=== PATIENT | male | born 1975 | race Caucasian/White ===

== ENCOUNTER 2022-03-04 11:48 | Emergency (ER) | payer OTHER, SELFPAY ==
[2022-03-04] VITALS (10 sets, daily range): BP systolic 138–195; BP diastolic 84–116; PULSE 79–108; RESP 16; TEMP 36.8; O2SAT 94–97
--- NOTE | 2022-03-04 12:29 | ED_ITS ---
HPI - General Adult General Time Seen by Provider: 12:31 Date Seen: 03/04/22 Chief complaint: Dizziness/Vertigo Stated complaint: Lightheaded, tingling left arm Time Seen by Provider: 03/04/22 12:18 Source: patient and family Mode of arrival: ambulatory Limitations: no limitations History of Present Illness HPI narrative: 46-year-old male who comes in today with intermittent lightheadedness for the last 3-4 days, along with some pressure in the back of the head. He notes lightheaded some more when he stands although it is been a little more consistent today. He denies associated chest pain, palpitations, nausea, vomiting. Has had some loose stools but no abdominal pain. Denies fevers or chills. No shortness of breath with this. Has not taken anything for his symptoms. He takes lisinopril daily for hypertension, no other medications. Denies smoking. Also some numbness in the left arm which he associates with carpal tunnel syndrome and which felt better after he took aspirin earlier. Related Data Home Medications Medication Instructions Recorded Confirmed lisinopril 20 mg tablet 20 mg PO DAILY 03/04/22 03/04/22 Allergies Allergy/AdvReac Type Severity Reaction Status Date / Time No Known Drug Allergies Allergy Verified 03/04/22 12:09 Review of Systems Status of ROS: Reports: 10 or more systems reviewed and unremarkable except as noted in History and below PFSH PFS Social History Smoking Status: Never smoker Do you use any of these nicotine containing products: None Second hand tobacco smoke exposure: No How often do you have a drink containing alcohol: 4 or more times a week How many standard drinks containing alcohol do you have on a typical day: 3 or 4 AUDIT-C Alcohol total score: 5 Non-prescribed substance use: denies use service: Yes Exam Narrative: Exam Narrative: General: Well-developed and well-nourished, no acute distress Head: Atraumatic and normocephalic Eyes: Pupils are equal reactive, extraocular motions intact, conjunctiva clear ENT: External nose and ears are normal, posterior pharynx without erythema or exudate Neck: No midline cervical tenderness, full spontaneous range of motion the neck, trachea midline, no adenopathy Heart: Tachycardic but regular with no murmurs Lungs: Clear to auscultation bilaterally without wheezes or crackles Abdomen: Soft, nontender, nondistended with active bowel sounds Musculoskeletal: No tenderness, deformity, or edema Neurologic: Awake, alert, and oriented x3, no gross focal neurologic deficits, cranial nerves intact as tested Psych: Mood and affect are appropriate Skin: No rashes Const: Vital Signs, click to edit/add: Vital Signs - 24 hr 03/04/22 12:10 03/04/22 12:30 03/04/22 13:18 Temperature 98.2 F Pulse Rate 90 Pulse Rate [Pulse Oximeter] 108 H 98 Respiratory Rate 16 Blood Pressure 152/88 H Blood Pressure [Ri ght Upper Arm] 195/116 H 159/89 H Pulse Oximetry 96 95 96 Oxygen Delivery Me thod Room Air Room Air 03/04/22 13:19 03/04/22 12:45 03/04/22 13:30 Temperature Pulse Rate 88 84 Pulse Rate [Pulse Oximeter] 90 Respiratory Rate Blood Pressure Blood Pressure [Ri ght Upper Arm] 139/84 Pulse Oximetry 96 94 94 Oxygen Delivery Me thod Room Air 03/04/22 13:31 Temperature Pulse Rate 79 Pulse Rate [Pulse Oximeter] Respiratory Rate Blood Pressure 138/86 Blood Pressure [Ri ght Upper Arm] Pulse Oximetry 95 Oxygen Delivery Me thod Course Course Hospital Course: Patient seen examined, prior records are reviewed. Differential diagnosis includes but not limited to dysrhythmia, acute coronary syndrome, pulmonary embolism, electrolyte disturbance, medication side effect, anemia, dehydration. Patient with intermittent lightheadedness for the last 3-4 days. No associated chest pain, palpitations, or shortness of breath. On initial exam, patient is tachycardic and hypertensive but no other acute findings. Lab, EKG, chest x-ray ordered. Reevaluation(s) Reevaluation #1: EKG is reassuring. Heart rate and blood pressure improving without intervention. Troponin is negative, CBC is normal, basic panel and D-dimer are pending. Chest x-ray negative for any acute intrathoracic pathology. Time: 13:28 Reevaluation #2: Basic panel is reassuring including normal glucose and normal electrolytes. D- dimer is negative. Patient is movement discharge. Follow-up with primary care, symptoms persist consider Holter monitor or further provocative testing but in absence of chest pain or anginal equivalent, unlikely this symptoms today represent acute coronary syndrome. Time: 13:40 Vital Signs Vital signs: Initial Vital Signs Temperature 98.2 F 03/04/22 12:10 Temperature Source Temporal Artery Scan 03/04/22 12:10 Pulse Rate 108 H 03/04/22 12:10 Pulse Rhythm 03/04/22 12:10 Pulse Strength 3+ Normal 03/04/22 12:10 Respiratory Rate 16 03/04/22 12:10 Blood Pressure 195/116 H 03/04/22 12:10 Blood Pressure Mean 142 03/04/22 12:10 Blood Pressure Position Sitting 03/04/22 12:10 Pulse Oximetry 96 03/04/22 12:10 Oxygen Delivery Method 03/04/22 12:10 Vital Signs Temperature 98.2 F 03/04/22 12:10 Pulse Rate 108 H 03/04/22 12:10 Respiratory Rate 16 03/04/22 12:10 Blood Pressure 195/116 H 03/04/22 12:10 Pulse Oximetry 96 03/04/22 12:10 Oxygen Delivery Method 03/04/22 12:10 Temperature 98.2 F 03/04/22 12:10 Pulse Rate 79 03/04/22 13:31 Respiratory Rate 16 03/04/22 12:10 Blood Pressure 138/86 03/04/22 13:31 Pulse Oximetry 95 03/04/22 13:31 Oxygen Delivery Method 03/04/22 12:45 Medical Decision Making Medical Records Medical records reviewed: Yes I reviewed the patient's medical records Lab Data Lab results reviewed: Yes I reviewed the patient's lab results Labs: Lab Results 03/04/22 03/04/22 03/04/22 Range/Units 12:33 13:05 13:05 WBC 6.17 (4.50-11.00) K/uL RBC 5.35 (4.30-5.90) m/uL Hgb 16.7 (13.5-17.5) gm/dL Hct 46.7 (37.0-53.0) % MCV 87 (80-100) fL MCH 31 (26-34) pg MCHC 36 (32-36) gm/dL RDW Coeff of Leopoldo 12.3 (11.5-15.5) % Plt Count 154 (140-440) K/uL Neut % (Auto) 66.8 (42.0-72.0) % Lymph % (Auto) 23.7 (20-44) % [place] % (Auto) 7.5 (0.0-11.0) % Eos % (Auto) 1.0 (0.0-7.0) % Baso % (Auto) 0.5 (0.0-3.0) % Neut # (Auto) 4.13 (1.7-7.0) K/uL Lymph # (Auto) 1.46 (0.90-2.90) K/uL [place] # (Auto) 0.50 (0.00-0.90) K/UL Eos # (Auto) 0.06 (0.00-0.50) K/uL Baso # (Auto) 0.03 (0.00-0.30) K/uL Abs Immat Gran (auto) 0.03 (0.00-0.30) K/uL D-Dimer Quant (PE/DVT) < 0.27 (0.00-0.50) ug/ml Sodium (135-149) mmol/L Potassium (3.6-5.1) mmol/L Chloride (96-114) mmol/L Carbon Dioxide (20-32) mmol/L BUN (5-24) mg/dL Creatinine (0.5-1.5) mg/dL Estimated Creat Clear Estimated GFR ml/min Glucose (60-115) mg/dL Calcium (8.4-10.6) mg/dL POC Troponin I 0.01 (0.01-0.04) ng/ml 03/04/22 Range/Units 13:05 WBC (4.50-11.00) K/uL RBC (4.30-5.90) m/uL Hgb (13.5-17.5) gm/dL Hct (37.0-53.0) % MCV (80-100) fL MCH (26-34) pg MCHC (32-36) gm/dL RDW Coeff of Leopoldo (11.5-15.5) % Plt Count (140-440) K/uL Neut % (Auto) (42.0-72.0) % Lymph % (Auto) (20-44) % [place] % (Auto) (0.0-11.0) % Eos % (Auto) (0.0-7.0) % Baso % (Auto) (0.0-3.0) % Neut # (Auto) (1.7-7.0) K/uL Lymph # (Auto) (0.90-2.90) K/uL [place] # (Auto) (0.00-0.90) K/UL Eos # (Auto) (0.00-0.50) K/uL Baso # (Auto) (0.00-0.30) K/uL Abs Immat Gran (auto) (0.00-0.30) K/uL D-Dimer Quant (PE/DVT) (0.00-0.50) ug/ml Sodium 137 (135-149) mmol/L Potassium 3.8 (3.6-5.1) mmol/L Chloride 101 (96-114) mmol/L Carbon Dioxide 25 (20-32) mmol/L BUN 16 (5-24) mg/dL Creatinine 1.1 (0.5-1.5) mg/dL Estimated Creat Clear 88.42 Estimated GFR 83 ml/min Glucose 135 H (60-115) mg/dL Calcium 9.6 (8.4-10.6) mg/dL POC Troponin I (0.01-0.04) ng/ml Imaging Data Chest x-ray: Attestation: I have reviewed the pertinent imaging results. My impression: Negative chest Radiologist's impression: Unremarkable chest ECG Data Attestation: I personally reviewed and interpreted this ECG as follows: Prior ECG tracings: not available for review Interpretation: Performed at 1:14 p.m. demonstrates normal sinus rhythm rate 85, no acute ST elevations or depressions, normal intervals, left axis deviation, QTC 421. No prior for comparison. Discharge Plan Discharge Clinical Impression: Near syncope, Hypertension Patient Disposition: Home, Self-Care Condition: Stable Instructions: Chronic Hypertension (DC), Near Syncope (ED) Additional Instructions: Continue your current medications. Follow-up with your primary care doctor in 3-4 days. Activity Level: No Restrictions Discharge Diet: Regular Prescriptions: No Action lisinopril 20 mg tablet 20 mg PO DAILY Stand Alone Forms: [employer] Info Instructions
--- NOTE | 2022-03-04 12:32 | CRLHL7_ITS ---
For Patients: As a result of the Century Cures Act, medical imaging exams and procedure reports are released immediately into your electronic medical record. You may view this report before your referring provider. If you have questions, please contact your health care provider. INDICATION: lightheadedness TECHNIQUE: Chest 2 views. COMPARISON: None. FINDINGS: Cardiovascular and mediastinum: Heart size and vasculature are normal in caliber and appearance. Mediastinum is within normal limits. Lungs and pleural spaces: Lungs are clear. No sign of infiltrate or mass. No sign of pleural effusion. No pneumothorax. Bones and soft tissues: No significant findings. IMPRESSION: Unremarkable chest. Dictated by: Ammon Eason MD @ 03/04/2022 13:01:41 (Electronically Signed)
[2022-03-04 13:16] LABS: Basophils Absolute Auto 0.03 K/uL (0.00-0.30); Basophils Percent Auto 0.5 % (0.0-3.0); Eosinophils Absolute Auto 0.06 K/uL (0.00-0.50); Hematocrit 46.7 % (37.0-53.0); Hemoglobin* 16.7 gm/dL (13.5-17.5); Immature Granulocytes Abs Auto 0.03 K/uL (0.00-0.30); Lymphocytes Absolute Auto 1.46 K/uL (0.90-2.90); Lymphocytes Percent Auto 23.7 % (20-44); Mean Corpuscular HGB Conc 36 gm/dL (32-36); Mean Corpuscular Hemoglobin 31 pg (26-34); Mean Corpuscular Volume 87 fL (80-100); Monocytes Percent Auto 7.5 % (0.0-11.0); Neutrophils Absolute Auto 4.13 K/uL (1.7-7.0); Neutrophils Percent Auto 66.8 % (42.0-72.0); Platelet Count* 154 K/uL (140-440); RDW Coefficient of Variation % 12.3 % (11.5-15.5); Red Blood Count 5.35 m/uL (4.30-5.90); White Blood Count* 6.17 K/uL (4.50-11.00)
[2022-03-04 13:17] LABS: Slide Review Reflex No
[2022-03-04] MEDS: 0.9 % SODIUM CHLORIDE 1000 ml 1,000 ML IV (13:18)
[2022-03-04 13:24] LABS: Troponin, Point-of-Care* 0.01 ng/ml (0.01-0.04)
[2022-03-04 13:27] LABS: Chloride* 101 mmol/L (96-114); Sodium* 137 mmol/L (135-149)
[2022-03-04 13:28] LABS: Potassium* 3.8 mmol/L (3.6-5.1)
[2022-03-04 13:30] LABS: Carbon Dioxide* 25 mmol/L (20-32); Creatinine* 1.1 mg/dL (0.5-1.5); Est. Creatinine Clearance* 88.42; Estimated Glomerular Filt Rate 83 ml/min
[2022-03-04 13:31] LABS: Blood Urea Nitrogen* 16 mg/dL (5-24); Calcium* 9.6 mg/dL (8.4-10.6); Glucose* 135 mg/dL (60-115)
[2022-03-04 13:33] LABS: D Dimer Quantitative* < 0.27 ug/ml (0.00-0.50)
== END 2022-03-04 14:15 | disposition home or self-care (01) ==
PROVIDERS: Emergency Provider Family Medicine
DX: R55 Syncope and collapse (principal); I10 Essential (primary) hypertension; Z79.899 Other long term (current) drug therapy
CPT/HCPCS: 36415; 71046; 80048; 85025; 85379; 93005; 96360; 99284; J7030